=== PATIENT | female | born 1995 | race Caucasian/White ===

== ENCOUNTER 2017-07-17 20:03 | Emergency (ER) | payer SELFPAY ==
--- NOTE | 2017-07-17 20:10 | EDPHY ---
H & P HPI/ROS: HPI CHIEF COMPLAINT: Neck Pain, Headache, "Fever" HISTORY OF PRESENT ILLNESS: This patient 21-year-old female, significant past medical history for asthma, SVT, heart murmur, Migraine Headache, patient presents emergency room stating for the past week or approximately 6 days she has had a stiff neck and neck pain. Additionally reports a global headache but mainly in the back of her head. Additionally she reports she has had fever every day for week. She has not taken her temperature but she states that she "Knows what a Fever feels like" additionally patient reports that she is unable to move her neck in any direction as a gives her pain. She has not had any vomiting. She denies numbness or tingling or focal weakness anywhere. She denies trauma. She states she has never had this much neck pain before. Upon arrival to the emergency room she appears nontoxic however during history and review of systems and physical exam she refuses to move her neck. When I asked her to range her neck either direction or back or forward she refused to do so. She states that "I will not move my neck, I am not going to fucking move it" and I explained that we need to fully examine her neck range of motion she is decline for me to evaluate her neck or touch her neck or move it. I spent a great deal time explaining why we need to fully assess her range of motion physical exam of her neck however she states "I am not fucking moving it , I already told you it hurts, and that I have a headache, I am not repeating myself" she will not explain any further on details of her neck pain or headache. I explained the patient early here to help her child fully evaluate her neck and headache in why she cannot move her neck however she is declining to provide any further information or participate in the physical exam. Past Medical History: Migraine headaches, SVT, heart murmur. Past Surgical History: No recent surgery Social History: Denies daily use of drugs alcohol tobacco. Family History: Noncontributory ROS REVIEW OF SYSTEMS: Limited due the patient's interaction of history taking providing answers to my questions as well as physical exam. Exam Constitutional appears well nontoxic, triage nursing summary reviewed, vital signs reviewed, awake/alert. Eyes normal conjunctivae and sclera, EOMI, PERRLA. HENT head/neck: Patient is in an erect position. She is refusing for me to examine her neck or to range her neck at all. I do not appreciate any gross abnormality from external exam. She refused me to palpate midline cervical spine Respiratory clear to auscultation bilaterally, normal breath sounds, no respiratory distress, no wheezing. Cardiovascular tachycardic, regular rhythm, no murmur, no edema, distal pulses normal. Gastrointestinal soft, non-tender, no rebound, no guarding, normal bowel sounds, no distension, no pulsatile mass. Genitourinary no CVA tenderness. Musculoskeletal no midline vertebral tenderness, full range of motion, no calf swelling, no tenderness of extremities, no meningismus, good pulses, neurovascularly intact. Skin pink, warm, & dry, no rash, skin atraumatic. Neurologic awake, alert and oriented x 3, AAOx3, moves all 4 extremities equally, motor intact, sensory intact, CN II-XII intact, normal cerebellar, normal vision, normal speech. Psychiatric angry Heme/Lymph/Immune no lymphadenopathy. Differential Diagnosis: Includes but is not limited to in a particular order torticollis, muscle spasm, meningitis, disc herniation, compression fracture, musculoskeletal injury, infection Medical Decision Making: Plan for this patient IV establishment blood draw, medication to help with her neck pain including 0.5 mg IV Dilaudid, Toradol, and Valium for muscle spasm. Do recommend CT scan head and neck without contrast given headache and neck pain. IV fluid bolus. Re-evaluate. Will discuss with her about spinal tap in terms of headache, neck pain with stiff neck, and subjective fever x1 week. However clinically she appears well nontoxic I have a low suspicion for meningitis. Most likely more musculoskeletal neck pain. But this is limited due to interaction with patient and not allowing me to examine her or get an accurate full history. Re-evaluation: 2044: After extensive discussion with this patient and recommended workup she has agreed for IV establishment blood draw, CT scan of her head and neck and pain medication. Will re-evaluate her neck pain after she receives pain control. 2114: Blood work and urinalysis is reviewed. Urinalysis does show that she has a urinary tract infection nitrite positive. I will send this for urine culture. I did go re-evaluate her she denies any abdominal pain. Denies pelvic pain. Denies back pain or flank pain. Denies urinary symptoms. She reports to me that she frequently gets urinary tract infections. Additionally noted her test is positive her HCT QUAL is Positive. Will send a beta quant hormone level. Patient reports her last menstrual period was 4 weeks ago. She denies any vaginal discharge or vaginal bleeding. Denies lower abdominal pain or pelvic pain. Additionally she is feeling much better after IV Dilaudid and Valium for pain control of her neck pain. She now has full range of motion is feeling much better. Will treat UTI with Macrobid. 1st dose given in the emergency room. Additionally will recommend that she has close follow-up with Obgyn for care. Should refrain from smoking, alcohol, or drugs. Additionally she should take vitamins. Follow up with her primary care doctor Obgyn. 2126: Patient is feeling much better after IV pain medicine. Was able to re- examine her neck she has full range of motion right to left. Able to touch her chin to her chest. Most likely consistent with torticollis. Additionally she has a urinary tract infection. Additionally she is . I have given her extensive education about her follow-up care. She understands to follow up with primary care doctor or Obgyn. Take vitamins. Complete antibiotics as prescribed. Return emergency room if there is worsening neck pain, or any abdominal pain fever vomiting. At this time she has no abdominal pain pelvic pain vaginal discharge or bleeding. Do not feel that she needs a emergent pelvic ultrasound this time. She most likely is 4 weeks this based on dates. 2141: Patient's HCG quant just returned: 181. I did discuss with this patient. His most likely that she is extremely early . The would be no reason do a pelvic ultrasound this time. I did give return precautions. She understands return emergency room she develops worsening abdominal pain, pelvic pain, and follow up with primary care doctor Obgyn. Recommend repeat beta quant make sure it is increasing. Antibiotic as prescribed. Tylenol for pain control. And return emergency room if there is worsening symptoms questions concerns she understands. CT scan of the head without contrast and CT cervical spine without contrast shows no acute traumatic injury or acute abnormality. Incidental finding hemangioma of C4. Otherwise unremarkable CT scan. Called to me by Dr. Brennan. 2143: Re-evaluation patient: Patient resting comfortably. Feels much better. Okay for discharge. Source: Patient Constitutional: Initial Vital Signs Temperature (C) 37.6 C 12/01/17 20:10 Heart Rate 115 H 07/17/17 20:10 Respiratory Rate 16 07/17/17 20:10 Blood Pressure 119/84 H 07/17/17 20:10 O2 Sat (%) 97 07/17/17 20:10 O2 Delivery Mode Room Air Allergies/Adverse Reactions: No Known Allergies Allergy (Unverified 07/17/17 20:23) Home Medications: Medication Instructions Recorded Nitrofurantoin Macrobid [Macrobid] 100 mg PO BID #14 cap 07/17/17 Vit27&Calcium/Iron/FA 1 each PO DAILY #30 tab 07/17/17 [ Rx 1 Tablet (RX)] Medical Decision Making - Data Points Laboratory Results: Laboratory Results 07/17/17 20:45 07/17/17 20:45 07/17/17 07/17/17 07/17/17 20:45 20:45 20:45 WBC RBC Hgb Hct MCV MCH MCHC RDW Plt Count MPV Neut % (Auto) Lymph % (Auto) Waller % (Auto) Eos % (Auto) Baso % (Auto) Nucleat RBC Rel Count Absolute Neuts (auto) Absolute Lymphs (auto) Absolute Monos (auto) Absolute Eos (auto) Absolute Basos (auto) Absolute Nucleated RBC Immature Gran % Immature Gran # ESR VBG Lactic Acid 1.4 mmol/L mmol/L (0.7-2.1) Sodium Potassium Chloride Carbon Dioxide Anion Gap BUN Creatinine Estimated GFR Glucose Calcium C-Reactive Protein Beta HCG, Qual Beta HCG, Quant 181.19 mIU/mL H mIU/mL (0.00-4.83) Urine Color DARK YELLOW Urine Appearance HAZY Urine pH 6.0 (5.0-7.5) Ur Specific Jones 1.015 (1.002-1.030) Urine Protein TRACE H (NEGATIVE) Urine Ketones NEGATIVE (NEGATIVE) Urine Blood 1+ H (NEGATIVE) Urine Nitrate POSITIVE H (NEGATIVE) Urine Bilirubin NEGATIVE (NEGATIVE) Urine Urobilinogen 0.2 EU EU (0.2-1.0) Ur Leukocyte Esterase 2+ H (NEGATIVE) Urine RBC 5-10 /hpf H /hpf (0-3) Urine WBC 10-15 /hpf H /hpf (0-3) Ur Epithelial Cells 1+ /lpf /lpf (NONE-1+) Urine Bacteria 4+ /hpf H /hpf (NONE SEEN) Urine Mucus 2+ /lpf H /lpf (NONE-1+) Urine Yeast OCCASIONAL /hpf H /hpf (NONE SEEN) Urine Glucose NEGATIVE (NEGATIVE) Urine Opiates Screen NEGATIVE (NEGATIVE) Urine Barbiturates NEGATIVE (NEGATIVE) Ur Phencyclidine Scrn NEGATIVE (NEGATIVE) Ur Amphetamine Screen NEGATIVE (NEGATIVE) U Benzodiazepines Scrn NEGATIVE (NEGATIVE) Urine Cocaine Screen NEGATIVE (NEGATIVE) U Marijuana (THC) Screen NEGATIVE (NEGATIVE) 07/17/17 07/17/17 07/17/17 20:45 20:45 20:45 WBC 7.90 10^3/uL 10^3/uL (3.80-9.50) RBC 4.37 10^6/uL 10^6/uL (4.18-5.33) Hgb 12.7 g/dL g/dL (12.6-16.3) Hct 38.9 % % (38.0-47.0) MCV 89.0 fL fL (81.5-99.8) MCH 29.1 pg pg (27.9-34.1) MCHC 32.6 g/dL g/dL (32.4-36.7) RDW 14.0 % % (11.5-15.2) Plt Count 224 10^3/uL 10^3/uL (150-400) MPV 9.8 fL fL (8.7-11.7) Neut % (Auto) 58.2 % % (39.3-74.2) Lymph % (Auto) 24.7 % % (15.0-45.0) Waller % (Auto) 15.9 % H % (4.5-13.0) Eos % (Auto) 0.4 % L % (0.6-7.6) Baso % (Auto) 0.4 % % (0.3-1.7) Nucleat RBC Rel Count 0.0 % % (0.0-0.2) Absolute Neuts (auto) 4.60 10^3/uL 10^3/uL (1.70-6.50) Absolute Lymphs (auto) 1.95 10^3/uL 10^3/uL (1.00-3.00) Absolute Monos (auto) 1.26 10^3/uL H 10^3/uL (0.30-0.80) Absolute Eos (auto) 0.03 10^3/uL 10^3/uL (0.03-0.40) Absolute Basos (auto) 0.03 10^3/uL 10^3/uL (0.02-0.10) Absolute Nucleated RBC 0.00 10^3/uL 10^3/uL (0-0.01) Immature Gran % 0.4 % % (0.0-1.1) Immature Gran # 0.03 10^3/uL 10^3/uL (0.00-0.10) ESR 59 MM/HR H MM/HR (0-20) VBG Lactic Acid Sodium 138 mEq/L mEq/L (134-144) Potassium 3.6 mEq/L mEq/L (3.5-5.2) Chloride 97 mEq/L mEq/L (97-110) Carbon Dioxide 24 mEq/l mEq/l (22-31) Anion Gap 17 mEq/L H mEq/L (8-16) BUN 8 mg/dL mg/dL (7-23) Creatinine 0.8 mg/dL mg/dL (0.6-1.0) Estimated GFR > 60 Glucose 98 mg/dL mg/dL (70-100) Calcium 8.9 mg/dL mg/dL (8.5-10.4) C-Reactive Protein Pending Beta HCG, Qual POSITIVE Beta HCG, Quant Urine Color Urine Appearance Urine pH Ur Specific Jones Urine Protein Urine Ketones Urine Blood Urine Nitrate Urine Bilirubin Urine Urobilinogen Ur Leukocyte Esterase Urine RBC Urine WBC Ur Epithelial Cells Urine Bacteria Urine Mucus Urine Yeast Urine Glucose Urine Opiates Screen Urine Barbiturates Ur Phencyclidine Scrn Ur Amphetamine Screen U Benzodiazepines Scrn Urine Cocaine Screen U Marijuana (THC) Screen Medications Given: Discontinued Medications Diazepam (Valium Injection) 2.5 mg IVP EDNOW ONE Stop: 07/17/17 20:20 Last Admin: 07/17/17 20:59 Dose: 2.5 mg Hydromorphone HCl (Dilaudid) 0.5 mg IVP EDNOW ONE Stop: 07/17/17 20:20 Last Admin: 07/17/17 20:53 Dose: 0.5 mg Sodium Chloride (Ns) 1,000 mls @ 0 mls/hr IV EDNOW ONE; Wide Open PRN Reason: Protocol Stop: 07/17/17 20:20 Last Admin: 07/17/17 20:41 Dose: 1,000 mls Ketorolac Tromethamine (Toradol) 15 mg IVP EDNOW ONE Stop: 07/17/17 20:21 Last Admin: 07/17/17 20:51 Dose: 15 mg Nitrofurantoin (Macrobid 100mg Prepack#2) 1 btl TAKEHOME EDNOW ONE PRN Reason: Protocol Stop: 07/17/17 21:21 Last Admin: 07/17/17 21:34 Dose: 1 btl Nitrofurantoin Macrocrystals (Macrobid) 100 mg PO EDNOW ONE PRN Reason: Protocol Stop: 07/17/17 21:21 Last Admin: 07/17/17 21:35 Dose: 100 mg Ondansetron HCl (Zofran) 4 mg IVP EDNOW ONE Stop: 07/17/17 20:20 Last Admin: 07/17/17 20:50 Dose: 4 mg Departure - Departure Disposition: Home, Routine, Self-Care Clinical Impression: Torticollis, Neck pain UTI (urinary tract infection) Qualifiers: Urinary tract infection type: acute cystitis Hematuria presence: with hematuria Qualified Code(s): N30.01 - Acute cystitis with hematuria Qualifiers: Weeks of gestation: unspecified Qualified Code(s): Z34.90 - Encounter for supervision of normal , unspecified, unspecified trimester Condition: Good Instructions: Nitrofurantoin (By mouth), (ED), Urinary Tract Infection in Women (ED), Spasmodic Torticollis (ED), Neck Pain (ED) Additional Instructions: 1. Recommend he take Tylenol for pain control. 2. Do not smoke or drink alcohol. 3. Since your please start taking a vitamin. 4. Take antibiotic as prescribed for your urinary tract infection. 5. Return emergency room if you have worsening pain. 6. Return emergency room if develop abdominal pain or pelvic pain. 7. BETA HCG QUANT TODAY: 07/17/17 181. Referrals: NONE *PRIMARY CARE P,. [Primary Care Provider] - As per Instructions Prescriptions: Nitrofurantoin Macrobid [Macrobid] 100 mg PO BID #14 cap Vit27&Calcium/Iron/FA [ Rx 1 Tablet (RX)] 1 each PO DAILY #30 tab
[2017-07-17] MEDS ORDERED: HYDROmorphONE/DILAUDID 1 MG/ML INJ IVP ONE (20:19)
[2017-07-17] MEDS ORDERED: DIAZEPAM 10 MG/2 ML SYR IVP ONE (20:19)
[2017-07-17] MEDS ORDERED: ONDANSETRON 4 MG/2 ML VIAL IVP ONE (20:19)
[2017-07-17] MEDS ORDERED: NS 1,000 ML IV ONE (20:19)
[2017-07-17] MEDS ORDERED: KETOROLAC 15 MG/1 ML SDV IVP ONE (20:20)
[2017-07-17 20:28] VITALS: RESP 16; O2SAT 97
[2017-07-17 20:53] LABS: % IMMATURE GRANULYOCYTES 0.4 % (0.0-1.1); ABSOLUTE IMMATURE GRANULOCYTES 0.03 10^3/uL (0.00-0.10); ADD DIFF? NO; ADD MORPH? NO; ADD SCAN? NO; ATYPICAL LYMPHOCYTE FLAG 20 (0-99); FRAGMENT RBC FLAG 0 (0-99); HEMATOCRIT 38.9 % (38.0-47.0); HEMOGLOBIN 12.7 g/dL (12.6-16.3); LEFT SHIFT FLG 0 (0-99); LIPEMIA HEMOLYSIS FLAG 80 (0-99); MEAN CELL HEMOGLOBIN 29.1 pg (27.9-34.1); MEAN CELL HEMOGLOBIN CONCENTR. 32.6 g/dL (32.4-36.7); MEAN PLATELET VOLUME 9.8 fL (8.7-11.7); PLATELET CLUMPS FLAG 0 (0-99); PLATELET COUNT 224 10^3/uL (150-400); RED BLOOD CELL COUNT 4.37 10^6/uL (4.18-5.33)
[2017-07-17 20:54] LABS: LEUKOCYTE ESTERASE,URINE 2+ (NEGATIVE)
[2017-07-17 20:55] LABS: COLOR DARK YELLOW; NITRITE,URINE POSITIVE (NEGATIVE)
[2017-07-17] MEDS ORDERED: DIAZEPAM 10 MG/2 ML SYR ONE (21:00)
[2017-07-17 21:01] LABS: BACTERIA 4+ /hpf (NONE SEEN); MUCUS 2+ /lpf (NONE-1+); YEAST OCCASIONAL /hpf (NONE SEEN)
[2017-07-17 21:07] LABS: SEDIMENTATION RATE 59 MM/HR (0-20)
[2017-07-17 21:10] LABS: ANION GAP 17 mEq/L (8-16); CALCIUM 8.9 mg/dL (8.5-10.4); CARBON DIOXIDE 24 mEq/l (22-31); CHLORIDE 97 mEq/L (97-110); CREATININE 0.8 mg/dL (0.6-1.0); GLOMERULAR FILTRATION RATE > 60; GLUCOSE 98 mg/dL (70-100); POTASSIUM 3.6 mEq/L (3.5-5.2); SODIUM 138 mEq/L (134-144)
[2017-07-17] MEDS ORDERED: NITROFURANTOIN MACROBID 100 MG CAP PO ONE (21:20)
[2017-07-17] MEDS ORDERED: NITROFURANTOIN 100MG PREPACK#2 BTL TAKEHOME ONE (21:20)
[2017-07-17 21:57] VITALS: BP 120/77; PULSE 90; TEMP 99.5
[2017-07-17 23:06] LABS: C-REACTIVE PROTEIN 145.5 mg/L (<10.0)
== END 2017-07-17 21:56 | disposition home or self-care (01) ==
LOC: CED 20:03
DX: O99.89 Other specified diseases and conditions complicating pregnancy, childbirth and the puerperium (principal); M43.6 Torticollis; O23.10 Infections of bladder in pregnancy, unspecified trimester; B96.89 Other specified bacterial agents as the cause of diseases classified elsewhere; E86.9 Volume depletion, unspecified; J45.909 Unspecified asthma, uncomplicated; Z3A.00 Weeks of gestation of pregnancy not specified
CPT/HCPCS: 70450-PO; 72125-PO; 80048-PO; 80307-PO; 81003-PO; 81015-PO; 83605-PO; 84702-PO; 84703-PO; 85025-PO; 85652-PO; 96374; J1170; J1885; J2405